=== PATIENT | male | born 1960 | race Caucasian/White ===

== ENCOUNTER 2017-04-24 11:52 | Emergency (ER) | payer SELFPAY ==
[2017-04-24 11:52] VITALS: BMI 21.5
--- NOTE | 2017-04-24 14:20 | C.PDOC ---
History Of Present Illness 57 yr old male presents to the ER with complaints of pain and swelling to the left upper chest near the clavicle for more then 1 month. Patient states the area has became more painful and larger recently. States he had a XRay done at a another hospital and showed no findings. Patient denies fever, chest pain, SOB , throat pain, cough, neck pain, weakness or numbness. Time Seen by Provider: 04/24/17 12:05 Chief Complaint (Nursing): Upper Extremity Problem/Injury History Per: Patient History/Exam Limitations: no limitations Onset/Duration Of Symptoms: Days (More then 1 month), Waxing/Waning Past Medical History Reviewed: Historical Data, Nursing Documentation, Vital Signs Vital Signs: Last Vital Signs Temp 98.1 F 04/24/17 12:00 Pulse 90 04/24/17 12:00 Resp 16 04/24/17 12:00 BP 138/88 04/24/17 12:00 Pulse Ox 95 04/24/17 14:28 Family History: States: No Known Family Hx - Social History Hx Tobacco Use: Yes (2 packs daily ) Hx Alcohol Use: No (former) Hx Substance Use: No - Immunization History Hx Tetanus Toxoid Vaccination: No Hx Influenza Vaccination: No Hx Pneumococcal Vaccination: No Review Of Systems Except As Marked, All Systems Reviewed And Found Negative. Constitutional: Negative for: Fever ENT: Negative for: Throat Pain Cardiovascular: Positive for: Other (Pain and swelling to the left upper chest near the clavicle). Negative for: Chest Pain Respiratory: Negative for: Cough, Shortness of Breath Musculoskeletal: Negative for: Neck Pain Neurological: Negative for: Weakness, Numbness Physical Exam - Physical Exam Appears: Non-toxic, No Acute Distress Skin: Warm, Dry, No Rash Head: Atraumatic, Normacephalic Oral Mucosa: Moist Throat: Normal, No Erythema, No Exudate, No Drooling Neck: Normal, Normal ROM, Supple Chest: Symmetrical, Other ((+) Palpable area of swelling to the inferior left clavicle, tender to palpation. No fluctuance. No induration. No erythema.) Cardiovascular: Rhythm Regular, No Murmur Respiratory: Normal Breath Sounds, No Rales, No Rhonchi, No Stridor, No Wheezing Extremity: Normal ROM, No Swelling Neurological/Psych: Oriented x3, Normal Speech, Normal Motor, Normal Sensation ED Course And Treatment O2 Sat by Pulse Oximetry: 95 (RA) Pulse Ox Interpretation: Normal - CT Scan/US CT - Chest Other Rad Studies (CT/US): Read By Radiologist, Radiology Report Reviewed CT/US Interpretation: PROCEDURE: CT Chest without contrast. HISTORY: LEFT UPPER CHEST/CLAVICLE MASS. COMPARISON: None. TECHNIQUE: Contiguous axial images were obtained through the chest without intravenous contrast enhancement. Sagittal and coronal reconstructions were performed. . Radiation dose (DLP): 301.96 MGy-cm. This CT exam was performed using one or more of the following dose reduction techniques: Automated exposure control, adjustment of the mA and/or kV according to patient size, and/or use of iterative reconstruction technique. FINDINGS: LUNGS: there is infiltrate noted at the lingula suspicious for pneumonia associated with focal mild bronchiectasis and small airspace consolidation. There is also small nodular opacity at the lateral aspect of the right middle lobe measures 11 millimeter. MEDIASTINUM: Unremarkable thoracic aorta. No aneurysm. Normal sized heart. Main pulmonary artery unremarkable. No vascular congestion. Mildly enlarged mediastinal lymph nodes are noted. PLEURA: No pleural fluid. No pneumothorax. BONES: There is foci of cortical erosion noted at the medial aspect of the left clavicle head. There is adjacent soft tissue density surrounding the left sternoclavicular joint and proximal head of the left clavicle. Findings may represent severe arthritis of the left sternoclavicular joint. Other etiology such as neoplasm is not totally excluded. Otherwise the visualized osseous structures are grossly unremarkable. UPPER ABDOMEN: Partially imaged mildly dilated proximal abdominal aorta is noted. OTHER FINDINGS: None. IMPRESSION: Foci of cortical erosion noted at the medial head of the left clavicle surrounding with fluid or soft tissue density. The assessment is limited without IV contrast administration. Differential consideration includes severe left sternoclavicular arthritis versus less likely neoplasm. Further assessment by enhanced MRI is suggested. Focal heterogeneous infiltrate and small opacity at the lingula suspicious for pneumonia. 11.5 millimeter nodule at the middle lobe. Three months follow-up reassessment is recommended. Mildly enlarged mediastinal lymph nodes. Progress Note: PLAN: CT - Chest. Disposition Counseled Patient/Family Regarding: Studies Performed, Diagnosis, Need For Followup, Rx Given - Disposition Referrals: [facility] [Outside] Disposition: HOME/ ROUTINE Disposition Time: 14:50 Condition: STABLE Additional Instructions: GO OR CALL THE MEDICAL CLINIC TOMORROW FOR APPOINTMENT YOU NEED OUTPATIENT MRI OF THE AREA RETURN TO ER IF SYMPTOMS WORSEN Prescriptions: Azithromycin [Zithromax] 250 mg PO DAILY #4 tab Instructions: Pneumonia (ED) Forms: [facility] (Bhutanese), General Discharge Instructions Print Language: DANISH - POA Present On Arrival: None - Clinical Impression Clinical Impression: Pneumonia, Soft tissue mass - Scribe Statement The provider has reviewed the documentation as recorded by the Luis Penaloza Provider Attestation: All medical record entries made by the Luis were at my direction and personally dictated by me. I have reviewed the chart and agree that the record accurately reflects my personal performance of the history, physical exam, medical decision making, and the department course for this patient. I have also personally directed, reviewed, and agree with the discharge instructions and disposition.
--- NOTE | 2017-04-24 14:27 | CT ---
PROCEDURE: CT Chest without contrast HISTORY: LEFT UPPER CHEST/CLAVICLE MASS COMPARISON: None. TECHNIQUE: Contiguous axial images were obtained through the chest without intravenous contrast enhancement. Sagittal and coronal reconstructions were performed. Radiation dose (DLP): 301.96 MGy-cm. This CT exam was performed using one or more of the following dose reduction techniques: Automated exposure control, adjustment of the mA and/or kV according to patient size, and/or use of iterative reconstruction technique. FINDINGS: LUNGS: there is infiltrate noted at the lingula suspicious for pneumonia associated with focal mild bronchiectasis and small airspace consolidation. There is also small nodular opacity at the lateral aspect of the right middle lobe measures 11 millimeter. MEDIASTINUM: Unremarkable thoracic aorta. No aneurysm. Normal sized heart. Main pulmonary artery unremarkable. No vascular congestion. Mildly enlarged mediastinal lymph nodes are noted. PLEURA: No pleural fluid. No pneumothorax. BONES: There is foci of cortical erosion noted at the medial aspect of the left clavicle head. There is adjacent soft tissue density surrounding the left sternoclavicular joint and proximal head of the left clavicle. Findings may represent severe arthritis of the left sternoclavicular joint. Other etiology such as neoplasm is not totally excluded. Otherwise the visualized osseous structures are grossly unremarkable. UPPER ABDOMEN: Partially imaged mildly dilated proximal abdominal aorta is noted. OTHER FINDINGS: None. IMPRESSION: Foci of cortical erosion noted at the medial head of the left clavicle surrounding with fluid or soft tissue density. The assessment is limited without IV contrast administration. Differential consideration includes severe left sternoclavicular arthritis versus less likely neoplasm. Further assessment by enhanced MRI is suggested. Focal heterogeneous infiltrate and small opacity at the lingula suspicious for pneumonia. 11.5 millimeter nodule at the middle lobe. Three months follow-up reassessment is recommended. Mildly enlarged mediastinal lymph nodes.
[2017-04-24 15:03] VITALS: BP 161/80; PULSE 77; RESP 18; TEMP 97.8; O2SAT 98
== END 2017-04-24 15:07 | disposition home or self-care (01) ==
LOC: C.ER 11:52
DX: J18.9 Pneumonia, unspecified organism (principal); R91.8 Other nonspecific abnormal finding of lung field; Z72.0 Tobacco use

== ENCOUNTER 2017-07-24 09:38 | Emergency (ER) | payer SELFPAY ==
[2017-07-24 09:38] VITALS: BMI 21.5
[2017-07-24 09:47] VITALS: BP 129/80; PULSE 95; RESP 18; TEMP 98.3; O2SAT 98
--- NOTE | 2017-07-24 10:13 | C.PDOC ---
History Of Present Illness 57yo male with no past medical history, presents to ER with complaints of a full body rash, present on his back, chest and under his arms present for the past month. Patient states the rash is very itchy and is now radiating to his groin. He denies any pain, fever, chills, nausea or vomiting. No other complaints. Time Seen by Provider: 07/24/17 10:05 Chief Complaint (Nursing): Abnormal Skin Integrity History Per: Patient History/Exam Limitations: no limitations Onset/Duration Of Symptoms: Persistent Current Symptoms Are (Timing): Still Present Quality Of Symptoms: Itching Additional History Per: Patient Past Medical History Reviewed: Historical Data, Nursing Documentation, Vital Signs Vital Signs: Last Vital Signs Temp 98.3 F 07/24/17 09:42 Pulse 95 H 07/24/17 09:42 Resp 18 07/24/17 09:42 BP 129/80 07/24/17 09:42 Pulse Ox 98 07/24/17 10:14 - Medical History PMH: Denies: Anxiety, Depression, Diabetes, Hepatitis, HIV, HTN, Personality Disorder, Schizophrenia, Seizures, Sexually Transmitted Disease Surgical History: No Surg Hx Family History: States: Unknown Family Hx - Social History Hx Tobacco Use: Yes (2 packs daily ) Hx Alcohol Use: Yes (former) Hx Substance Use: No - Immunization History Hx Tetanus Toxoid Vaccination: No Hx Influenza Vaccination: No Hx Pneumococcal Vaccination: No Review Of Systems Except As Marked, All Systems Reviewed And Found Negative. Constitutional: Negative for: Fever, Chills Gastrointestinal: Negative for: Nausea, Vomiting Skin: Positive for: Rash Physical Exam - Physical Exam Appears: Non-toxic, No Acute Distress Skin: Rash (maculopapular rash following mees line of skin in the form of a mariam tree with exchoriation in arms and body.) Head: Normacephalic Eye(s): bilateral: Normal Inspection Neck: Normal ROM, Supple Chest: Symmetrical Cardiovascular: Rhythm Regular Respiratory: Normal Breath Sounds Neurological/Psych: Oriented x3 ED Course And Treatment O2 Sat by Pulse Oximetry: 98 (RA) Pulse Ox Interpretation: Normal Medical Decision Making Medical Decision Making: Impression: Pityriasis rosea Plan: -- Prednisone 60 mg PO Patient to be discharged home with Benadryl, cortisone lotion and steroids. Instructed to follow up with PCP in 2-3 days. Disposition Counseled Patient/Family Regarding: Diagnosis, Need For Followup, Rx Given - Disposition Referrals: [facility] at [facility] [Outside] Disposition: HOME/ ROUTINE Disposition Time: 10:09 Condition: STABLE Prescriptions: DiphenhydrAMINE [Benadryl] 50 mg PO TID #9 cap Hydrocortisone Lotion 2.5% 59 ml TP TID #1 lot Prednisone [Deltasone] 60 mg PO DAILY #12 tablet Forms: [facility] (Czech), General Discharge Instructions - POA Present On Arrival: None - Clinical Impression Clinical Impression: Pityriasis rosea - Scribe Statement The provider has reviewed the documentation as recorded by the Scribe (Criselda Reyes) Provider Attestation: All medical record entries made by the Scribe were at my direction and personally dictated by me. I have reviewed the chart and agree that the record accurately reflects my personal performance of the history, physical exam, medical decision making, and the department course for this patient. I have also personally directed, reviewed, and agree with the discharge instructions and disposition.
== END 2017-07-24 10:30 | disposition home or self-care (01) ==
LOC: C.ER 09:38
DX: L42 Pityriasis rosea (principal); F17.210 Nicotine dependence, cigarettes, uncomplicated